=== PATIENT | male | born 1945 | race Caucasian/White ===

== ENCOUNTER 2018-03-20 10:22 | Emergency (ER) | payer OTHER ==
[2018-03-20] MEDS ORDERED: Sodium Chloride 0.9% 10 ML Syringe FLUSH PRN (11:05)
--- NOTE | 2018-03-20 11:33 | EDM.PDOC ---
ED HPI GENERAL MEDICAL PROBLEM - General Chief Complaint: Cardiovascular Problem Stated Complaint: AFIB Time Seen by Provider: 03/20/18 10:54 Source of Information: Reports: Patient, RN Notes Reviewed - History of Present Illness INITIAL COMMENTS - FREE TEXT/NARRATIVE: 73-year-old male comes in with concern about continued atrial fibrillation. He does have history of occasional atrophia but has been in primarily sinus rhythm for several years. For this past week or so his heart rate readings have been running in the 100-120 range with one reading as high as 143. Therefore he has been suspicious of being in atrophia with his normal heart rate running in the 60s. 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 Is on Coumadin. States he has been somewhat more short of breath, especially with exertion this past week or so. No chest pain. No abdominal pain nausea vomiting or diaphoresis. - Related Data Allergies Allergy/AdvReac Type Severity Reaction Status Date / Time amoxicillin Allergy Diarrhea Verified 03/20/18 10:37 Home Meds: Home Meds Allopurinol [Zyloprim] 300 mg PO DAILY 03/20/18 [History] Ascorbic Acid/Ascorbate Sodium [Vit C-Daisha Hips 500 mg Chew Tb] 500 mg PO DAILY 03/20/18 [History] Aspirin 81 mg PO DAILY 03/20/18 [History] Celecoxib 200 mg PO DAILY 03/20/18 [History] Cholecalciferol (Vitamin D3) [Vitamin D] 2,000 unit PO DAILY 03/20/18 [History] Flecainide [Tambocor] 50 mg PO BID 03/20/18 [History] Flecainide [Tambocor] 100 mg PO Q12H PRN 03/20/18 [History] Furosemide [Lasix] 20 mg PO DAILY 03/20/18 [History] Lisinopril 40 mg PO DAILY 03/20/18 [History] Metoprolol Tartrate 25 mg PO BID 03/20/18 [History] Metoprolol Tartrate 25 mg PO Q12HR #60 tablet 03/20/18 [Rx] Potassium Chloride [Klor-Con 10] 10 meq PO DAILY 03/20/18 [History] Vitamin E 200 unit PO DAILY 03/20/18 [History] Warfarin [Coumadin] 6 mg PO BEDTIME 03/20/18 [History] amLODIPine Besylate [Amlodipine Besylate] 10 mg PO BEDTIME 03/20/18 [History] atorvaSTATin [Lipitor] 40 mg PO BEDTIME 03/20/18 [History] Past Medical History HEENT History: Reports: Impaired Vision Cardiovascular History: Reports: Afib - Infectious Disease History Infectious Disease History: Reports: Chicken Pox, Measles - Past Surgical History Cardiovascular Surgical History: Reports: Valve Replacement, Other (See Below) Other Cardiovascular Surgeries/Procedures: bipassed vessel and replaced aortic valve Social & Family History - Family History Family Medical History: Noncontributory - Tobacco Use Smoking Status *Q: Former Smoker Years of Tobacco use: 30 Packs/Tins Daily: 0.5 Used Tobacco, but Quit: Yes Month/Year Tobacco Last Used: 02/2003 - Caffeine Use Caffeine Use: Reports: Coffee Caffeine Use Comment: one cup of coffee every morning - Recreational Drug Use Recreational Drug Use: No ED ROS GENERAL - Review of Systems Review Of Systems: See Below Constitutional: Denies: Fever, Chills, Diaphoresis HEENT: Reports: No Symptoms Respiratory: Reports: Shortness of Breath (Exertional). Denies: Wheezing, Pleuritic Chest Pain Cardiovascular: Denies: Chest Pain GI/Abdominal: Denies: Abdominal Pain, Nausea, Vomiting Musculoskeletal: Denies: Shoulder Pain, Arm Pain, Back Pain Skin: Reports: No Symptoms Neurological: Reports: No Symptoms ED EXAM, GENERAL - Physical Exam Exam: See Below General Appearance: Alert, No Apparent Distress Throat/Mouth: Normal Inspection, Normal Oropharynx Head: No: Facial Swelling Neck: Supple, Full Range of Motion Respiratory/Chest: No Respiratory Distress, Lungs Clear, Normal Breath Sounds Cardiovascular: Irregularly Irregular GI/Abdominal: Soft, Non-Tender Back Exam: No: CVA Tenderness (L), CVA Tenderness (R) Extremities: Normal Inspection, Normal Range of Motion Neurological: No Motor/Sensory Deficits Skin Exam: Warm, Dry, Normal Color EKG INTERPRETATION EKG Date: 03/20/18 Rhythm: A-Fib Rate (Beats/Min): 119 [place]: Normal QRS: Normal ST-T: Normal Course - Vital Signs Last Recorded V/S: Last Vital Signs Temp 97.3 F 03/20/18 10:30 Pulse 113 H 03/20/18 12:14 Resp 18 03/20/18 10:30 BP 132/116 H 03/20/18 12:14 Pulse Ox 96 03/20/18 10:30 - Orders/Labs/Meds Orders: Active Orders 24 hr Category Date Time Status EKG 12 Lead [EKG Documentation Completion] [RC] STAT Care 03/20/18 11:06 Active Peripheral IV Care [RC] . DIRECTED Care 03/20/18 11:07 Active Chest 1V Frontal [CR] Stat Exams 03/20/18 11:06 Taken Sodium Chloride 0.9% [Saline Flush] Med 03/20/18 11:05 Active 10 ml FLUSH ASDIRECTED PRN Peripheral IV Insertion Adult [OM.PC] Stat Oth 03/20/18 11:07 Ordered Medication Orders Sodium Chloride (Saline Flush) 10 ml FLUSH ASDIRECTED PRN PRN Reason: Keep Vein Open Last Admin: 03/20/18 11:21 Dose: 10 ml Labs: Laboratory Tests 03/20/18 03/20/18 03/20/18 Range/Units 11:22 11:22 11:22 WBC 7.42 (4.23-9.07) K/mm3 RBC 4.51 L (4.63-6.08) M/mm3 Hgb 14.4 (13.7-17.5) gm/L Hct 43.4 (40.1-51.0) % MCV 96.2 H (79.0-92.2) fl MCH 31.9 (25.7-32.2) pg MCHC 33.2 (32.2-35.5) g/dl RDW Std Deviation 47.1 H (35.1-43.9) fL Plt Count 200 (163-337) K/mm3 MPV 9.4 (9.4-12.3) fl Neut % (Auto) 79.4 H (34.0-67.9) % Lymph % (Auto) 10.2 L (21.8-53.1) % [place] % (Auto) 8.1 (5.3-12.2) % Eos % (Auto) 2.2 (0.8-7.0) Baso % (Auto) 0.1 (0.1-1.2) % Neut # (Auto) 5.89 H (1.78-5.38) K/mm3 Lymph # (Auto) 0.76 L (1.32-3.57) K/mm3 [place] # (Auto) 0.60 (0.30-0.82) K/mm3 Eos # (Auto) 0.16 (0.04-0.54) K/mm3 Baso # (Auto) 0.01 (0.01-0.08) K/mm3 PT 28.3 H (9.5-12.1) SECONDS INR 2.65 Sodium 137 (136-145) mEq/L Potassium 4.1 (3.5-5.1) mEq/L Chloride 105 (98-107) mEq/L Carbon Dioxide 27 (21-32) mEq/L Anion Gap 9.1 (5-15) BUN 21 H (7-18) mg/dL Creatinine 1.0 (0.7-1.3) mg/dL Est Cr Clr Drug Dosing 69.96 mL/min Estimated GFR (MDRD) > 60 (>60) mL/min BUN/Creatinine Ratio 21.0 H (14-18) Glucose 124 H (83-115) mg/dL Calcium 9.1 (8.5-10.1) mg/dL Total Bilirubin 0.9 (0.2-1.0) mg/dL AST 19 (15-37) U/L ALT 31 (16-63) U/L Alkaline Phosphatase 115 (46-116) U/L NT-Pro-B Natriuret Pep (0-125) pg/mL Total Protein 7.2 (6.4-8.2) g/dl Albumin 3.8 (3.4-5.0) g/dl Globulin 3.4 gm/dL Albumin/Globulin Ratio 1.1 (1-2) 03/20/18 Range/Units 11:22 WBC (4.23-9.07) K/mm3 RBC (4.63-6.08) M/mm3 Hgb (13.7-17.5) gm/L Hct (40.1-51.0) % MCV (79.0-92.2) fl MCH (25.7-32.2) pg MCHC (32.2-35.5) g/dl RDW Std Deviation (35.1-43.9) fL Plt Count (163-337) K/mm3 MPV (9.4-12.3) fl Neut % (Auto) (34.0-67.9) % Lymph % (Auto) (21.8-53.1) % [place] % (Auto) (5.3-12.2) % Eos % (Auto) (0.8-7.0) Baso % (Auto) (0.1-1.2) % Neut # (Auto) (1.78-5.38) K/mm3 Lymph # (Auto) (1.32-3.57) K/mm3 [place] # (Auto) (0.30-0.82) K/mm3 Eos # (Auto) (0.04-0.54) K/mm3 Baso # (Auto) (0.01-0.08) K/mm3 PT (9.5-12.1) SECONDS INR Sodium (136-145) mEq/L Potassium (3.5-5.1) mEq/L Chloride (98-107) mEq/L Carbon Dioxide (21-32) mEq/L Anion Gap (5-15) BUN (7-18) mg/dL Creatinine (0.7-1.3) mg/dL Est Cr Clr Drug Dosing mL/min Estimated GFR (MDRD) (>60) mL/min BUN/Creatinine Ratio (14-18) Glucose (83-115) mg/dL Calcium (8.5-10.1) mg/dL Total Bilirubin (0.2-1.0) mg/dL AST (15-37) U/L ALT (16-63) U/L Alkaline Phosphatase (46-116) U/L NT-Pro-B Natriuret Pep 606 H (0-125) pg/mL Total Protein (6.4-8.2) g/dl Albumin (3.4-5.0) g/dl Globulin gm/dL Albumin/Globulin Ratio (1-2) Meds: Medications Generic Name Dose Route Start Last Admin Trade Name Freq PRN Reason Stop Dose Admin Sodium Chloride 10 ml 03/20/18 11:05 03/20/18 11:21 Saline Flush FLUSH 10 ml ASDIRECTED PRN Administration Keep Vein Open Discontinued Medications Generic Name Dose Route Start Last Admin Trade Name Freq PRN Reason Stop Dose Admin Metoprolol Tartrate 5 mg 03/20/18 11:46 03/20/18 12:14 Lopressor IVPUSH 03/20/18 11:47 5 mg ONETIME ONE Administration Metoprolol Tartrate 25 mg 03/20/18 11:47 03/20/18 12:10 Lopressor PO 03/20/18 11:48 25 mg ONETIME ONE Administration - Re-Assessments/Exams Free Text/Narrative Re-Assessment/Exam: 03/20/18 14:10 Chest x-ray did show cardiomegaly, mild pulmonary congestion. He continued in atrial fib with initial rate running in the 100-115 range primarily, occasionally a bit faster. We did give metoprolol 5 mg IV followed by 25 mg oral. That did bring his rate down into the 80s. He does have an appointment to see his pot tender in about 10 days. Discharge instructions as documented. Departure - Departure Time of Disposition: 13:23 Disposition: Home, Self-Care 01 Condition: Fair Clinical Impression: Atrial fibrillation Qualifiers: Atrial fibrillation type: paroxysmal Qualified Code(s): I48.0 - Paroxysmal atrial fibrillation Congestive heart failure Qualifiers: Heart failure type: combined systolic and diastolic Heart failure chronicity: acute on chronic Qualified Code(s): I50.43 - Acute on chronic combined systolic (congestive) and diastolic (congestive) heart failure Prescriptions: Metoprolol Tartrate 25 mg PO Q12HR #60 tablet Instructions: Heart Failure, [id number], Atrial Fibrillation, [id number] Referrals: PCP,Not In Area [Primary Care Provider] - Forms: ED Department Discharge Additional Instructions: Increase your metoprolol from 25 mg twice daily to 50 mg twice daily. If your heart rate does drop down into the 50s and 60s as discussed then you should be able to safely go back to the 25 mg twice a day dosage. You are showing signs of fluid retention both lung to chest x-ray and also clinical exam. Increase your furosemide to 40 mg daily as discussed. See your [employer] in about 7 -10 days as planned. Return to ED as needed. - My Orders Last 24 Hours: My Active Orders 03/20/18 11:05 Sodium Chloride 0.9% [Saline Flush] 10 ml FLUSH ASDIRECTED PRN 03/20/18 11:06 EKG 12 Lead [EKG Documentation Completion] [RC] STAT Chest 1V Frontal [CR] Stat 03/20/18 11:07 Peripheral IV Care [RC] . DIRECTED Peripheral IV Insertion Adult [OM.PC] Stat - Assessment/Plan Last 24 Hours: My Active Orders 03/20/18 11:05 Sodium Chloride 0.9% [Saline Flush] 10 ml FLUSH ASDIRECTED PRN 03/20/18 11:06 EKG 12 Lead [EKG Documentation Completion] [RC] STAT Chest 1V Frontal [CR] Stat 03/20/18 11:07 Peripheral IV Care [RC] . DIRECTED Peripheral IV Insertion Adult [OM.PC] Stat
[2018-03-20] MEDS ORDERED: Metoprolol Tartrate 5 MG/5 ML SDV IVPUSH ONE (11:46)
[2018-03-20] MEDS ORDERED: Metoprolol Tartrate 50 MG Tab PO ONE (11:47)
--- NOTE | 2018-03-23 07:15 | CR ---
Chest: Portable view of the chest was obtained. Comparison: No prior chest x-ray. Elevated left hemidiaphragm is seen. Difficult to exclude superimposed left basilar parenchymal consolidation. Heart is enlarged. Pulmonary vessels are congested. Previous sternotomy is noted with prosthetic heart valve and prior CABG. Impression: 1. Elevated left hemidiaphragm, difficult to exclude superimposed consolidation within the left base. 2. Cardiomegaly with mild pulmonary vascular congestion and previous sternotomy. Diagnostic code #3
== END 2018-03-20 13:50 | disposition home or self-care (01) ==
LOC: JD.ED 10:22
DX: I48.0 Paroxysmal atrial fibrillation (principal); I50.43 Acute on chronic combined systolic (congestive) and diastolic (congestive) heart failure; Z88.1 Allergy status to other antibiotic agents; Z79.82 Long term (current) use of aspirin; Z79.899 Other long term (current) drug therapy; Z87.891 Personal history of nicotine dependence
CPT/HCPCS: 36415; 71045; 80053; 83880; 85025; 85610; 93005; 96374; 99284; A9270; J3490; J7050; 93010